=== PATIENT | male | born 1965 | race Caucasian/White ===

== ENCOUNTER 2016-09-09 21:35 | Emergency (ER) | payer BC ==
[2016-09-09] MEDS ORDERED: Metoclopramide 10 MG/2 ML SDV IV ONE (21:49)
[2016-09-09] MEDS ORDERED: diphenhydrAMINE 50 MG/ML SDV IVPUSH ONE (21:49)
[2016-09-09] MEDS ORDERED: Sodium Chloride 0.9% 1,000 ML IV ONE (21:49)
[2016-09-09] MEDS ORDERED: Ketorolac 30 MG/ML SDV IVPUSH ONE (21:49)
[2016-09-09] MEDS ORDERED: Ondansetron 4 MG/2 ML SDV IVPUSH ONE (21:49)
--- NOTE | 2016-09-09 21:52 | EDM.PDOC ---
ED HPI GENERAL MEDICAL PROBLEM - General Chief Complaint: Headache Stated Complaint: HEADACHE Time Seen by Provider: 09/09/16 21:40 - History of Present Illness INITIAL COMMENTS - FREE TEXT/NARRATIVE: HISTORY AND PHYSICAL: History of present illness: Patient is 51-year-old male history of migraine headache presents with a concern of migraine headache discomfort off and on for last several weeks he does have a scheduled appointment with his primary medical doctor. He has been using hydrocodone that he had from a prior prescription approximately one year prior to arrival he has associated photophobia and nausea denies fever chills trauma other neurological signs or symptoms apart from headache. Review of systems: As per history of present illness and below otherwise all systems reviewed and negative. Past medical history: As per history of present illness and as reviewed below otherwise noncontributory. Surgical history: As per history of present illness and as reviewed below otherwise noncontributory. Social history: No reported history of drug or alcohol abuse. Family history: As per history of present illness and as reviewed below otherwise noncontributory. Physical exam: HEENT: Atraumatic, normocephalic, pupils reactive, negative for conjunctival pallor or scleral icterus, mucous membranes moist, throat clear, neck supple, nontender, trachea midline. Lungs: Clear to auscultation, breath sounds equal bilaterally, chest nontender. Heart: S1S2, regular, negative for clicks, rubs, or JVD. Abdomen: Soft, nondistended, nontender. Negative for masses or hepatosplenomegaly. Negative for costovertebral tenderness. Pelvis: Stable nontender. Genitourinary: Deferred. Rectal: Deferred. Extremities: Atraumatic, negative for cords or calf pain. Neurovascular unremarkable. Neuro: Awake, alert, oriented. Cranial nerves II through XII unremarkable. Cerebellum unremarkable. Motor and sensory unremarkable throughout. Exam nonfocal. Diagnostics: Urine drug screen Therapeutics: Normal saline 1 L bolus Toradol 30 mg IV Zofran 4 mg IV Reglan 10 mg IV Benadryl 50 mg IV Impression: #1 migraine headache Definitive disposition and diagnosis as appropriate pending reevaluation and review of above. - Related Data Allergies Allergy/AdvReac Type Severity Reaction Status Date / Time morphine Allergy Hives Verified 09/09/16 21:59 Home Meds: Home Meds . [No Known Home Meds] 09/09/16 [History] Past Medical History HEENT History: Reports: None Cardiovascular History: Reports: None Respiratory History: Reports: None Gastrointestinal History: Other Gastrointestinal History: occasional heartburn Genitourinary History: Reports: None Musculoskeletal History: Reports: Other (See Below) Other Musculoskeletal History: chronic neck and shoulder pain Neurological History: Reports: None Psychiatric History: Reports: None Other Endocrine/Metabolic History: hypoglycemic, states passes out easily if he hasnt eaten Hematologic History: Reports: None Immunologic History: Reports: None Oncologic (Cancer) History: Reports: None Dermatologic History: Reports: Psoriasis - Past Surgical History Head Surgeries/Procedures: Reports: None Social & Family History - Tobacco Use Smoking Status *Q: Current Every Day Smoker - Recreational Drug Use Recreational Drug Use: No Drug Use in Last 12 Months: No ED ROS GENERAL - Review of Systems Review Of Systems: ROS reveals no pertinent complaints other than HPI. ED EXAM, GENERAL - Physical Exam Exam: See Below (See dictation) Course - Vital Signs Last Recorded V/S: Last Vital Signs Temp 36.3 C 09/09/16 22:00 Pulse 93 09/09/16 22:00 Resp 18 09/09/16 22:00 BP 151/94 H 09/09/16 22:00 Pulse Ox 94 L 09/09/16 22:00 - Orders/Labs/Meds Orders: Active Orders 24 hr Category Date Time Status DRUG SCREEN, URINE [URCHEM] Stat Lab 09/09/16 21:49 Uncollected Sodium Chloride 0.9% [Normal Saline] 1,000 ml Med 09/09/16 21:49 Active IV STAT Medication Orders Sodium Chloride (Normal Saline) 1,000 mls @ 999 mls/hr IV STAT ONE Stop: 09/09/16 22:49 Last Admin: 09/09/16 22:06 Dose: 999 mls/hr Meds: Medications Generic Name Dose Route Start Last Admin Trade Name Freq PRN Reason Stop Dose Admin Sodium Chloride 1,000 mls @ 999 mls/hr 09/09/16 21:49 09/09/16 22:06 Normal Saline IV 09/09/16 22:49 999 mls/hr STAT ONE Administration Discontinued Medications Generic Name Dose Route Start Last Admin Trade Name Freq PRN Reason Stop Dose Admin Diphenhydramine HCl 50 mg 09/09/16 21:49 09/09/16 22:06 Benadryl IVPUSH 09/09/16 21:50 50 mg ONETIME ONE Administration Ketorolac Tromethamine 30 mg 09/09/16 21:49 09/09/16 22:06 Toradol IVPUSH 09/09/16 21:50 30 mg ONETIME ONE Administration Metoclopramide HCl 10 mg 09/09/16 21:49 09/09/16 22:06 Reglan IV 09/09/16 21:50 10 mg ONETIME ONE Administration Ondansetron HCl 4 mg 09/09/16 21:49 09/09/16 22:06 Zofran IVPUSH 09/09/16 21:50 4 mg ONETIME ONE Administration Departure - Departure Time of Disposition: 22:42 Disposition: Home, Self-Care 01 Condition: good Clinical Impression: Migraine - Discharge Information Forms: ED Department Discharge Additional Instructions: The following information is given to patients seen in the emergency department who are being discharged to home. This information is to outline your options for follow-up care. We provide all patients seen in our emergency department with a follow-up referral. The need for follow-up, as well as the timing and circumstances, are variable depending upon the specifics of your emergency department visit. If you don't have a primary care physician on staff, we will provide you with a referral. We always advise you to contact your personal physician following an emergency department visit to inform them of the circumstance of the visit and for follow-up with them and/or the need for any referrals to a consulting specialist. The emergency department will also refer you to a specialist when appropriate. This referral assures that you have the opportunity for followup care with a specialist. All of these measure are taken in an effort to provide you with optimal care, which includes your followup. Under all circumstances we always encourage you to contact your private physician who remains a resource for coordinating your care. When calling for followup care, please make the office aware that this follow-up is from your recent emergency room visit. If for any reason you are refused follow-up, please contact the [facility] emergency department at and asked to speak to the emergency department charge nurse. [facility] Specialty Care - Urology [address] [place] [id number] Follow-up primary medical doctor neurology above as discussed call to schedule appointment return as needed as discussed - My Orders Last 24 Hours: My Active Orders 09/09/16 21:49 DRUG SCREEN, URINE [URCHEM] Stat Sodium Chloride 0.9% [Normal Saline] 1,000 ml IV STAT - Assessment/Plan Last 24 Hours: My Active Orders 09/09/16 21:49 DRUG SCREEN, URINE [URCHEM] Stat Sodium Chloride 0.9% [Normal Saline] 1,000 ml IV STAT
[2016-09-09 23:29] VITALS: BP 127/86
== END 2016-09-09 23:05 | disposition home or self-care (01) ==
LOC: MW.ED 21:35
DX: G43.909 Migraine, unspecified, not intractable, without status migrainosus (principal); L40.9 Psoriasis, unspecified; F17.200 Nicotine dependence, unspecified, uncomplicated; Z88.5 Allergy status to narcotic agent
CPT/HCPCS: 96361; 96374; 96375; 99283; J1200; J1885; J2405; J2765; J7040; 99284

== ENCOUNTER 2017-02-28 20:54 | Emergency (ER) | payer BC ==
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
[2017-02-28 21:39] LABS: CHLORIDE,CL 95 mmol/L (98-110); SODIUM,NA 127 mmol/L (136-146)
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
[2017-02-28] MEDS ORDERED: Etomidate 2 MG/ML 20 ML SDV IVPUSH ONE ×2 (22:16→23:00)
[2017-02-28] MEDS ORDERED: Rocuronium 50 MG/5 ML Vial IVPUSH ONE (22:18)
[2017-02-28] MEDS ORDERED: Succinylcholine 200 MG/10 ML MDV IV ONE (22:18)
[2017-02-28] MEDS ORDERED: ceFAZolin 2 GM in Premix Bag 1 BAG IV ONE (22:19)
[2017-02-28] MEDS ORDERED: Succinylcholine 200 MG/10 ML MDV ONE (23:00)
[2017-02-28] MEDS ORDERED: Sodium Chloride 0.9% 1,000 ML IV SCH (23:00)
[2017-02-28] MEDS ORDERED: Rocuronium 100 MG/10 ML MDV ONE (23:00)
[2017-02-28 23:32] VITALS: BP 162/112
--- NOTE | 2017-03-01 17:26 | CR ---
EXAM DATE: 02/28/17 PATIENT'S AGE: 51 Patient: FER ANDREA Facility: [place], [place] Site . Site : [id number] Study: XRay Chest [id number]/26/2017 10:24:53 PM Ordering Physician: Alfredo Graff Final Report: INDICATION: Status post intubation TECHNIQUE: Chest 1 view. 10:07 p.m. COMPARISON: None FINDINGS: Cardiovascular and mediastinum: Heart size and vasculature are normal in caliber and appearance. Mediastinum is within normal limits. Lungs and pleural space: Lungs are clear. No sign of infiltrate or mass. No sign of pleural effusion. No pneumothorax. Bones and soft tissues: No significant findings. Lines and tubes: The ET tube is in place with the tip 8.0 centimeters from the josh. A NG tube terminates just above the GE junction and should be advanced. IMPRESSION: The ET tube is in place with the tip 3.0 centimeters from the josh. NG tube tip terminates just above the GE junction and should be advanced. Dictated by Fausto Rowley MD @ 02/28/2017 10:29:05 PM Dictated by: Fausto Rowley MD @ 02/28/2017 22:29:15 (Electronic Signature) Report Signed by Proxy. BHAVESH
== END 2017-02-28 22:30 ==
LOC: MW.ED 20:54
DX: S01.81XA Laceration without foreign body of other part of head, initial encounter (principal); F17.210 Nicotine dependence, cigarettes, uncomplicated; Z88.5 Allergy status to narcotic agent; Y04.8XXA Assault by other bodily force, initial encounter
CPT/HCPCS: 31500; 36415; 43753; 51702; 71010; 80053; 80305; 85025; 85610; 96361; 96374; 96375; 99285; G0480; J0330

== ENCOUNTER 2017-09-13 09:51 | Emergency (ER) | payer BC ==
[2017-09-13] MEDS ORDERED: Ketorolac 60 MG/2 ML SDV IM ONE (10:41)
[2017-09-13] MEDS ORDERED: Lidocaine 2% Viscous Solution 15 ML Cup PO ONE (10:42)
[2017-09-13] MEDS ORDERED: Benzocaine 20% Topical Spray UD MUCMEM ONE (10:42)
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
[2017-09-13 11:15] VITALS: BP 110/70
== END 2017-09-13 11:15 | disposition home or self-care (01) ==
LOC: MW.ED 09:51
DX: K08.89 Other specified disorders of teeth and supporting structures (principal); F17.210 Nicotine dependence, cigarettes, uncomplicated
CPT/HCPCS: 96372; 99283; A9270; J1885